=== PATIENT | male | born 1965 | race Two or more races ===

== ENCOUNTER 2017-06-06 19:46 | Emergency (ER) | payer SELFPAY ==
[~2017-06-06] VITALS: Ht 167.6 cm; Wt 81.6 kg
[2017-06-06 19:49] VITALS: BP 150/90
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
[2017-06-06] MEDS ORDERED: IBUPROFEN600 MG ORAL (20:47)
[2017-06-06] MEDS ORDERED: ROBAXIN-750750 MG PO (20:47)
[2017-06-06 20:55] VITALS: BP 141/81
== END 2017-06-06 20:55 | disposition home or self-care (01) ==
LOC: EDBD 19:46 → EMR 20:14
DX: S39.012A Strain of muscle, fascia and tendon of lower back, initial encounter (principal); V43.52XA Car driver injured in collision with other type car in traffic accident, initial encounter; Y92.410 Unspecified street and highway as the place of occurrence of the external cause; M62.830 Muscle spasm of back
CPT/HCPCS: 99283

== ENCOUNTER 2017-12-11 09:58 | Day surgery (SDC) | payer OTHER ==
[2017-12-11] VITALS (9 sets, daily range): BP systolic 138–154; BP diastolic 75–97
[~2017-12-11] VITALS: Ht 162.6 cm; Wt 81.6 kg
--- NOTE | 2017-12-11 06:53 | Pre-Procedure Note/Attestation ---
Pre-Procedure Note/Attestation Complete Prior to Procedure Planned Procedure: right Procedure Narrative: rt knee scope, lateral meniscectomy and chondroplasty Indications for Procedure Pre-Operative Diagnosis: rt knee lateral meniscus tear Attestation I attest that I discussed the nature of the procedure; its benefits; risks and complications; and alternatives (and the risks and benefits of such alternatives ), prior to the procedure, with the patient (or the patient's legal passenger representative). I attest that, if there was a reasonable possibility of needing a blood transfusion, the patient (or the patient's legal passenger representative) was given the [facility] standardized written summary, pursuant to the [facility] Blood Safety Act ([place] Health and Safety Code # 1645, as amended). I attest that I re-evaluated the patient just prior to the surgery and that there has been no change in the patient's H&P, except as documented below: NONE Norris Hernandez MD Dec 11, 2017 06:53
[~2017-12-11 09:58] MED LIST: IBUPROFEN600 MG ORAL; ROBAXIN-750750 MG PO; Ropivacaine 5mg/ml Vial 30ml INJ ONE; ceFAZolin 1gm in D5W 55ml IVP SCH; celeBREX 200mg Cap **SURGERY PATIENTS ONLY ORAL SCH; oxyCONTIN 20mg tab ORAL SCH
[2017-12-11] MEDS ORDERED: LR 1000ml 1,000 ML IVLG SCH ×2 (10:03→12:50)
--- NOTE | 2017-12-11 10:03 | Anethesia Preoperative Eval ---
Domi Ritchie MD 12/11/17 1003: Anesthesia Pre-op PMH/ROS General Date of Evaluation: Dec 11, 2017 Anesthesiologist: Brandon ASA Score: ASA 2 Mallampati Score Class I : Soft palate, uvula, fauces, pillars visible Class II: Soft palate, uvula, fauces visible Class III: Soft palate, base of uvula visible Class IV: Only hard plate visible Mallampati Classification: Class II Surgeon: Mary Diagnosis: Right knee pain Surgical Procedure: Right knee arthroscopy Anesthesia History: none Family History: no anesthesia problems Allergies: Coded Allergies: Shrimp (Verified Allergy, Severe, 12/10/17) SHORTNESS OF BREATHE,FACIAL RASH AND DIFFICULTY BREATHING Medications: see eMAR Past Medical History Cardiovascular: Denies: HTN, CAD, AL, valve dz, arrhythmia, other Pulmonary: Denies: asthma, COPD, JIGNESH, other Gastrointestinal/Genitourinary: Reports: GERD; Denies: CRI, ESRD, other Neurologic/Psychiatric: Reports: depression/anxiety; Denies: dementia, CVA, TIA, other Endocrine: Denies: DM, hypothyroidism, steroids, other HEENT: Denies: cataract (L), cataract (R), glaucoma, KOTLIK (L), KOTLIK (R), other Hematology/Immune: Denies: anemia, DVT, bleeding disorder, other Musculoskeletal/Integumentary: Reports: other - LBP; Denies: OA, RA, DJD, DDD, edema PSxH Narrative: Denies Anesthesia Pre-op Phys. Exam Physician Exam see chart Constitutional: NAD Cardiovascular: RRR Respiratory: CTA Airway Exam Mallampati Score: Class II MO: full ROM: full Teeth: intact Anesthesia Pre-op A/P Labs see chart Studies Pre-op Studies: EKG - sr Risk Assessment & Plan Assessment: ASA II Plan: GA Status Change Before Surgery: No Pre-Antibiotics Drug: Ancef 2g Given Within 1 Hr of Incision: Yes Francisco José MD 12/11/17 1250: Anesthesia Pre-op PMH/ROS General Date of Evaluation: Dec 11, 2017 Time of Evaluation: 12:10 Anesthesiologist: Arnav ASA Score: ASA 2 Mallampati Classification: Class II Surgeon: Mary Diagnosis: R knee pain Surgical Procedure: R knee scope Anesthesia History: none Family History: no anesthesia problems Allergies: Coded Allergies: Shrimp (Verified Allergy, Severe, 12/10/17) SHORTNESS OF BREATHE,FACIAL RASH AND DIFFICULTY BREATHING Medications: see eMAR Past Medical History Cardiovascular: Denies: HTN, CAD, AL, valve dz, arrhythmia, other Pulmonary: Denies: asthma, COPD, JIGNESH, other Gastrointestinal/Genitourinary: Reports: GERD - mild Neurologic/Psychiatric: Denies: dementia, CVA, depression/anxiety, TIA, other Endocrine: Denies: DM, hypothyroidism, steroids, other HEENT: Denies: cataract (L), cataract (R), glaucoma, KOTLIK (L), KOTLIK (R), other Hematology/Immune: Denies: anemia, DVT, bleeding disorder, other Musculoskeletal/Integumentary: Denies: OA, RA, DJD, DDD, edema, other Other: other - overweight PMH Narrative: as above PSxH Narrative: none Anesthesia Pre-op Phys. Exam Physician Exam Constitutional: NAD Neurologic: CN 2-12 intact Cardiovascular: RRR, no M/R/G Respiratory: CTA Gastrointestinal: S/NT/ND Airway Exam Mallampati Score: Class II MO: full Neck: flexible ROM: full Teeth: intact Dentures: no upper, no lower Anesthesia Pre-op A/P Labs see chart Studies Pre-op Studies: EKG - NSR Risk Assessment & Plan Assessment: ASA 2 Plan: GA with LMA Status Change Before Surgery: No Pre-Antibiotics Drug: Ancerf 1gr. Given Within 1 Hr of Incision: Yes Time Given: 12:38 Domi Ritchie MD Dec 11, 2017 10:03 Francisco José MD Dec 11, 2017 12:50
[2017-12-11] MEDS ORDERED: Labetalol 5mg/ml 20ml vial IV PRN (10:15)
[2017-12-11] MEDS ORDERED: Hydromorphone 0.5mg/0.5ml inj IVP PRN (10:15)
[2017-12-11] MEDS ORDERED: DiphenhydrAMINE 50mg/ml Inj IVP PRN ×2 (10:15→13:00)
[2017-12-11] MEDS ORDERED: Ketorolac 30mg Inj IV PRN ×2 (10:15→13:00)
[2017-12-11] MEDS ORDERED: fentaNYL 100 mcg/2 mL IV PRN ×2 (10:15→13:00)
[2017-12-11] MEDS ORDERED: NKM (10:26)
[2017-12-11] MEDS ORDERED: IBUPROFEN600 MG ORAL (10:44)
[2017-12-11] MEDS ORDERED: fentaNYL 100 mcg/2 mL IV ONE (11:31)
[2017-12-11] MEDS ORDERED: Midazolam 2mg/2ml Inj ONE (11:31)
[2017-12-11] MEDS ORDERED: oxyCONTIN 20mg tab ORAL ONE (11:34)
[2017-12-11] MEDS ORDERED: Ketorolac 30mg Inj ONE (11:34)
[2017-12-11] MEDS ORDERED: Lidocaine 1% MPF 10mg/ml 5ml ONE (11:34)
[2017-12-11] MEDS ORDERED: celeBREX 200mg Cap **SURGERY PATIENTS ONLY ORAL ONE (11:34)
[2017-12-11] MEDS ORDERED: Propofol 200mg/20ml IV ONE (11:36)
[2017-12-11] MEDS ORDERED: Meperidine 50mg/ml Inj(FOR RIGORS ONLY) IV PRN (13:00)
--- NOTE | 2017-12-11 13:35 | Brief Operative Note ---
Immediate Post Operative Note Operative Note Chief Complaint: rt knee pain Pre-op Diagnosis: rt knee lateral meniscus tear Procedure: rt knee scope, lateral meniscectomy chondroplasty and resection of loose fragment Post-op Diagnosis: same as pre-op Findings: consistent w/pre-op dx studies Surgeon: md donte Healthcare Economics Manager: yolanda tatum Anesthesiologist: md ami Anesthesia: general Specimen: none Complications: none Condition: stable Fluids: ns Estimated Blood Loss: minimal Drains: none Implant(s) used?: No Gabi Tatum Dec 11, 2017 13:35
--- NOTE | 2017-12-11 13:46 | Immediate Post-Op Evaluation ---
Immediate Post-Op Evalulation Immediate Post-Op Evalulation Procedure: R knee arthroscopy, meniscectomy Date of Evaluation: Dec 11, 2017 Time of Evaluation: 13:45 IV Fluids: 1000 Blood Products: none Estimated Blood Loss: min Urinary Output: none Blood Pressure Systolic: 151 Blood Pressure Diastolic: 76 Pulse Rate: 102 Respiratory Rate: 20 O2 Sat by Pulse Oximetry: 99 Temperature (Fahrenheit): 98.5 Pain Score (1-10): 1 Nausea: No Vomiting: No Complications none Patient Status: awake, patent, none Hydration Status: adequate Francisco José MD Dec 11, 2017 13:46
--- NOTE | 2017-12-11 14:17 | 48 Hour Post Anesthesia Eval ---
Post Anesthesia Evaluation Procedure: R knee arthroscopy, meniscectomy Date of Evaluation: Dec 11, 2017 Time of Evaluation: 14:15 Blood Pressure Systolic: 144 0: 88 Pulse Rate: 102 Respiratory Rate: 21 Temperature (Fahrenheit): 97.8 O2 Sat by Pulse Oximetry: 98 Airway: patent Nausea: No Vomiting: No Pain Intensity: 2 Hydration Status: adequate Cardiopulmonary Status: stable Mental Status/LOC: patient returned to baseline Follow-up Care/Observations: n/a Post-Anesthesia Complications: none Follow-up care needed: ready to discharge Francisco José MD Dec 11, 2017 14:17
--- NOTE | 2017-12-11 17:45 | Operative Note - Dictated ---
DATE OF OPERATION: 12/11/2017 PREOPERATIVE DIAGNOSIS: Right knee anterior horn lateral meniscus tearing. POSTOPERATIVE DIAGNOSES: 1. Right knee chondral damage 1 x 1 cm over the central trochlear groove with unstable chondral flap. 2. Right knee large bucket-handle tear of the lateral meniscus involving 70% of posterior horn, body, and anterior horn of the lateral meniscus with displacements inside the notch. 3. 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 4. Osteochondral defect of the lateral femoral condyle measuring 1.5 x 1 cm. 5. Two large loose fragments measuring 1.5 x 1 cm and another one 7 mm x 10 mm over the lateral compartment of the knee. PROCEDURES: 1. Right knee arthroscopy and extensive intra-articular shaving. 2. Right knee chondroplasty of the trochlear groove with resection of unstable chondral flaps. 3. Right knee subtotal lateral meniscectomy involving 70% of the posterior horn, body, and anterior horn of the lateral meniscus for a bucket handle tear with significant maceration. 4. Right knee abrasion chondroplasty of the lateral femoral condyle and lateral tibial plateau. 5. Right knee resection of loose fragment from lateral compartment of the knee. SURGEON: Norris Hernandez M.D. BOBBIN LOOSE END FINDER: Bryon Alexander Residential Construction Instructor was present during the actual operative portion of the case and was important and essential part of the operation. During the operation, the veterinary assistant technician held and operated the arthroscopic camera for visualization, assisted by manipulating the leg to help with visualization, and helped with essential parts of the repair process as necessary such as operating surgical instruments under surgeon supervision, suture management, and wound closures. ANESTHESIOLOGIST: Francisco José M.D. ANESTHESIA: LMA anesthesia. EBL: 10 mL. TOURNIQUET TIME: 45 minutes. COMPLICATIONS: None SURGICAL INDICATION: Patient is a 52-year-old male who sustained the above injury to his knee. The patient was treated non-operative initially, but this did not alleviate the patients symptoms. Therefore, after discussing all non-surgical and surgical options, and discussing all foreseeable risk and benefits of surgery, the patient opted for surgical treatment as described above. PATIENT POSITIONING: Patient was brought to the operating room table and placed supine. All pressure points were well padded. General Anesthesia was induced and a well padded tourniquet was placed on the thigh. The lateral post was placed and positioned to allow for opening of the medial compartment of the knee without placing pressure over the fibular head. Patients entire leg was prepped and draped in the usual sterile fashion. Time out was performed and preop abx was given and after exsanguinating the lower extremity, the tourniquet was inflated to 275 mm of mercury. EXAMINATION OF THE KNEE UNDER ANESTHESIA: Before prepping and draping the knee and while the patient was relaxed under general anesthesia, the knee was examined for ROM, and anterior and posterior, medial and lateral, posterolateral, and posteromedial instability. Pivot shift testing was performed. There was no evidence of loss of motion or instability and the pivot shift testing was negative. PORTAL PLACEMENT: The lateral portal was placed with the knee flexed to 90 degrees at the level of inferior border of the patella in line with the lateral border of the patella. A cm skin incision was made with an eleven blade, and using a blunt obturator, the capsule was gently penetrated. Sterile saline solution was then infused inside the knee with the aid of a pump set at 35 mm mercury pressure. Under direct visualization, placement of the medial portal was preliminary judged using a spinal needle, and it was subsequently established using the same technique as the lateral portal. Care was given not to injure the cutaneous branches of the medial Saphenous nerve or the subcutaneous veins. DIAGNOSTIC ARTHROSCOPY: The suprapatellar patellar pouch was visualized. There was no evidence of scar tissue or loose fragments. The medial and lateral patellar facets and trochlear groove articular cartilage was visualized. There was trochlear chondral damage with unstable chondral flaps over the central trochlear groove. Trochlear lesion measured 1 x 1 cm. The medial plica shelf and the corresponding medial femoral condyle articular cartilage were visualized. There was no significantly thickening of the medial plica shelf and there were no Kissing ? lesion over the medial femoral condyle. The lateral gutter and the posterolateral corner of the knee were visualized. There were no loose bodies, and the popliteus tendon and other structures of the posterolateral corner of the knee were intact intra-articularly. At this point, the knee was placed in the figure of four position and the lateral compartment was entered. The lateral femoral condyle, lateral tibial plateau, and the anterior, body, and the posterior horn of the lateral meniscus were visualized and probed. There was extensive chondral damage of the lateral femoral condyle and lateral tibial plateau with almost entire lateral femoral condyle being involved and a 3/4 of the lateral tibial plateau being involved. This corresponded to the area of bucket-handle tear of lateral meniscus, which was incarcerated within the notch and was rubbing against the lateral femoral condyle and lateral tibial plateau. There was also a 1 x 1 cm osteochondral defect of the weightbearing zone of the lateral femoral condyle centrally. There was a bucket-handle tear of the lateral meniscus involving 70% of the lateral meniscus, posterior horn, body, and anterior horn of the lateral meniscus. There were also large loose fragments in the posterolateral compartment of the knee, which were osteochondral loose fragments in the posterolateral corner of the knee. The knee was then placed at 90 degree and the ACL and PCL were visualized and probed. The ACL was completely intact on visualization and probing, and it had excellent tension. The PCL was completely intact on visualization and probing and it had excellent tension. The medial compartment was then entered and the medial femoral condyle, medial tibial plateau, and the anterior, body, and the posterior horn of the medial meniscus were visualized and probed. The articular surfaces were intact and devoid of articular cartilage damage. The medial meniscus was completely intact both on its undersurface and on the top. The medial gutter was visualized. There was no evidence of defect or loose fragments. The scope was then brought back to the patella femoral compartment. OPERATIVE ARTHROSCOPY: At this point, all loose debris and fragments were removed with the use of suction motorized shaver. Specific attention was given to assure all visible loose fragments were irrigated out of the knee joint with pump inflow and cannula outflow system. The loose fragments were identified and visualized. Using combination of the shaver, suction, and graspers, these loose fragments were removed. These loose fragments measured approximately greater than 1 cm. All debris left behind was removed with combination of diego and graspers. The frayed articular cartilage of the undersurface of the patella and the trochlear groove were debrided using a motorized shaver. Suction was used to pull in the loose fragments and flaps of the cartilage and to minimize damage to the intact and well attached portion of the cartilage. This allowed for a smooth surface for the articular cartilage gliding. At this point, attention was given to the lateral meniscus. Using combination of baskets and diego, the torn portion of the lateral meniscus was removed. Attention was given to remove all displaced and unstable portion of the lateral meniscus while maintaining as much of the functional portion of the meniscus as possible. Approximately, 70% of the posterior horn, body, and anterior horn of the meniscus was removed in this fashion. The transition between the meniscectomy portion and intact portion of the meniscus was smoothed out with combination of small baskets and diego. Excellent transition zone was obtained in this fashion. Care was given to the area of cartilage damage in the lateral compartment. The frayed and loose fragments of articular cartilage were debrided using a motorized shaver. Suction was used to pull in the loose fragments and flaps of the cartilage and to minimize damage to the intact and well attached portion of the cartilage. This allowed for smooth surfaces for the articular cartilage. At this point, the lateral femoral condyle was debrided and abrasion chondroplasty was performed to bring chondral pro-generator cells in the area for fibrocartilage recreation. CONDITION AT DISCHARGE FROM OPERATING ROOM: The knee was irrigated with copious amount of normal saline at the end of the procedure. The scope was removed and the water was drained. The skin edges were re-approximated and sterile dressing was applied. All lap count and instrument counts were correct. Patient tolerated the procedure well without complications and was taken to the recovery room in stable conditions. Norris Hernandez M.D. DR: JUDY JOB#: [id number] CC:
[2017-12-11] MEDS ORDERED: Norco 5mg/325mg tab ORAL PRN (18:01)
[2017-12-11] MEDS ORDERED: Tylenol #3 tab (300mg/30mg) ORAL PRN (18:01)
[2017-12-11] MEDS ORDERED: Morphine Sulfate 2mg/ml Inj IVP PRN (18:01)
[2017-12-11] MEDS ORDERED: D5 1/2NS 1,000 ML IV SCH (18:01)
== END 2017-12-11 15:20 | disposition home or self-care (01) ==
LOC: SUR 09:58
DX: M23.261 Derangement of other lateral meniscus due to old tear or injury, right knee (principal); M17.31 Unilateral post-traumatic osteoarthritis, right knee; M94.9 Disorder of cartilage, unspecified
CPT/HCPCS: 29881; J0690; J1885; J2250; J2704; J3010; 94003; 94150